=== PATIENT | male | born 1955 | race Caucasian/White ===

== ENCOUNTER 2022-09-07 17:46 | Emergency (ER) | payer MEDICARE, OTHER ==
[~2022-09-07 17:46] MED LIST: Aspirin 81 MG Tab.Chew PO ONE; Sodium Chloride 0.9% 10 ML Syringe FLUSH PRN
[2022-09-07] MEDS ORDERED: INFUSION IV STA (18:22)
[2022-09-07] MEDS ORDERED: ALTEPLASE IV STA (18:22)
[2022-09-07 18:31] LABS: ESTIMATED GFR 56 mL/min (>60); TROPONIN I HIGH SENSITIVITY 30.5 pg/mL (<=60.3)
== END 2022-09-07 18:10 ==
LOC: JP.ED 17:46
DX: I63.9 Cerebral infarction, unspecified (principal); I10 Essential (primary) hypertension; Z79.82 Long term (current) use of aspirin; Z79.899 Other long term (current) drug therapy
CPT/HCPCS: 36415; 37195; 70450; 80053; 84484; 85025; 85610; 85730; 93005; 99285; A9270; J2997